=== PATIENT | female | born 1990 | race African-American/Black ===

== ENCOUNTER 2017-03-06 18:42 | Emergency (ER) | payer MEDICAID ==
[~2017-03-06] VITALS: Ht 162.6 cm; Wt 104.3 kg
[~2017-03-06 18:42] MED LIST: ALBUTEROL SULF8.5 GM INH; ALBUTEROL2.5 MG/3 M HHN; AMOXICILLIN500 MG ORAL; BENTYL10 MG ORAL; CYCLOBENZAPRINE10 MG ORAL; FERROUS GLUCON324 M1 PO; HYDROCODON-ACE1 EA15 ORAL; IBUPROFEN600 MG ORAL; IBUPROFEN600 MG PO; KEFLEX500 MG ORAL; LOMOTIL TABLET1 EACH ORAL; NITROFURANTOIN100 M2 ORAL; NKM; NORCO 10-325 T1 EACH PO; NORCO 5-325 TA1 EACH ORAL; NORCO 5-325 TA1 EACH PO; ONDANSETRON ODT4 MG ORAL; PHENAZOPYRIDIN200 MG ORAL; ROBAXIN-750750 MG PO; TYLENOL325 MG ORAL; VALIUM5 MG PO; VICODIN 5-5001 EACH PO; ZANTAC150 MG ORAL; ZOFRAN ODT4 MG ORAL; ZOFRAN4 MG ORAL
--- NOTE | 2017-03-06 19:39 | Emergency Room Report ---
History of Present Illness General Chief Complaint: Sore Throat Present Illness HPI 26-year-old female presents emergency department complaining of 10 out of 10 in severity sore throat with changes in voice x2 days. Patient reports pain is exacerbated upon swallowing and she describes a tearing sensation. Patient also reports tonsillar swelling. Patient denies fevers or chills, denies cough denies taking medications prior to arrival for pain. Patient denies runny nose , nasal congestion, rashes, or abdominal pain. Denies CP, Palpitations, LOC, AMS , dizziness, Changes in Vision, Sensation, paresthesias, or a sudden severe headache. Allergies: Coded Allergies: KETOROLAC (Verified Allergy, Unknown, Rash, 04/19/15) Face swelling TRAMADOL (Unverified Allergy, Unknown, Hives, 04/19/15) Patient History Past Medical History: see triage record Past Surgical History: none Pertinent Family History: none Last Menstrual Period: march Now: No Immunizations: UTD Reviewed Nursing Documentation: PMH: Agreed, PSxH: Agreed Nursing Documentation-PMH Hx Cardiac Problems: No Hx Hypertension: No Hx Pacemaker: No Hx Asthma: Yes Hx COPD: No Hx Diabetes: No Hx Cancer: No Hx Gastrointestinal Problems: No Hx Dialysis: No Hx Neurological Problems: No Hx Cerebrovascular Accident: No Hx Seizures: No Review of Systems All Other Systems: negative except mentioned in HPI Physical Exam Vital Signs Date Time Temp Pulse Resp B/P Pulse Ox O2 Delivery O2 Flow Rate FiO2 03/06/17 19:10 99.9 94 16 109/66 98 Room Air Sp02 EP Interpretation: reviewed, normal General Appearance: no apparent distress, alert, GCS 15, non-toxic, mild distress Head: normocephalic, atraumatic Eyes: bilateral eye PERRL, bilateral eye normal inspection ENT: hearing grossly normal, normal pharynx, no angioedema, normal voice, TMs + canals normal, uvula midline, tonsillar swelling - unilateral left-sided tonsillar swelling. , pharyngeal erythema, other - no swelling of the soft palate, uvula is midline. Neck: full range of motion, supple/symm/no masses Respiratory: chest non-tender, lungs clear, normal breath sounds, speaking full sentences Cardiovascular #1: regular rate, rhythm, no edema Musculoskeletal: back normal, gait/station normal, normal range of motion, non- tender Neurologic: alert, oriented x3, responsive, motor strength/tone normal, sensory intact, speech normal Psychiatric: judgement/insight normal, memory normal, mood/affect normal Skin: normal color, no rash, warm/dry, well hydrated Lymphatic: no adenopathy Medical Decision Making PA Attestation Dr. Gonzalez is my supervising Physician whom patient management has been discussed with. Diagnostic Impression: Primary Impression: Acute tonsillitis Qualified Codes: J03.00 - Acute streptococcal tonsillitis, unspecified ER Course 26-year-old female presents emergency department complaining of 10 out of 10 in severity sore throat with changes in voice x2 days. Patient reports pain is exacerbated upon swallowing and she describes a tearing sensation. Patient also reports tonsillar swelling. Patient denies fevers or chills, denies cough denies taking medications prior to arrival for pain. Patient denies runny nose , nasal congestion, rashes, or abdominal pain. Ddx considered but are not limited to: pharyngitis, strep, LINSEED OIL TEMPERER, ludwigs angina, URI Vital signs: are WNL, pt. is afebrile H&PE are most consistent with: pharyngitis presumed strep. ORDERS: None required at this time as the diagnosis is clinical ED INTERVENTIONS: -IM Decadron -IM PCN-G -Lidocaine 2% viscous 10ml --D/W pt strict follow up precautions, in 48 hours, pt. to return to ED with worsening or new symptoms such as fevers. As this could indicate progression of infection, specifically abscess. DISCHARGE: At this time pt. is stable for d/c to home. Will provide printed patient care instructions, and any necessary prescriptions. Care plan and follow up instructions have been discussed with the patient prior to discharge. Last Vital Signs Date Time Temp Pulse Resp B/P Pulse Ox O2 Delivery O2 Flow Rate FiO2 03/06/17 19:10 99.9 94 16 109/66 98 Room Air Disposition: HOME, SELF-CARE Condition: Stable Scripts Lidocaine HCl (Lidocaine HCl Viscous) 100 Ml Solution 20 ML PO QID, #200 ML Prov: Rosalinda Mendieta P.A. 03/06/17 Acetaminophen* (TYLENOL EXTRA STRENGTH*) 500 Mg Tablet 500 MG ORAL Q6H Y for Mild Pain/Temp > 100.5, #20 TAB 0 Refills Prov: Rosalinda Mednieta P.A. 03/06/17 Ibuprofen* (MOTRIN*) 600 Mg Tablet 600 MG ORAL THREE TIMES A DAY, #30 TAB 0 Refills Prov: Rosalinda Mendieta 03/06/17 Patient Instructions: Tonsillitis Additional Instructions: Take medications as directed. Follow up with PCP in 48 hours Return sooner to ED if new symptoms occur, or current symptoms become worse. RETURN to ED with Development of fevers, or worsening of symptoms. - Please note that this Emergency Department Report was dictated using MEDOVENTstretcher operator technology software, occasionally this can lead to erroneous entry secondary to interpretation by the dictation equipment. Rosalinda Mendieta March 06, 2017 19:39
[2017-03-06] MEDS ORDERED: Bicillin LA 1.2 Million Units Syr IM ONE (19:45)
[2017-03-06] MEDS ORDERED: Lidocaine 2% Visc 15ml soln ORAL ONE (19:45)
[2017-03-06] MEDS ORDERED: Dexamethasone 4mg/ml vial IM ONE (19:45)
[2017-03-06] MEDS ORDERED: TYLENOL EXTRA500 MG ORAL (20:33)
[2017-03-06] MEDS ORDERED: IBUPROFEN600 MG ORAL (20:33)
[2017-03-06] MEDS ORDERED: LIDOCAINE VISCO20 ML PO (20:38)
[2017-03-06 20:51] VITALS: BP 106/68
== END 2017-03-06 20:51 | disposition home or self-care (01) ==
LOC: EMR 20:14
DX: J03.00 Acute streptococcal tonsillitis, unspecified (principal); J45.909 Unspecified asthma, uncomplicated; Z88.6 Allergy status to analgesic agent
CPT/HCPCS: 96372; 99284; J0561; J1100

== ENCOUNTER 2017-04-30 15:36 | Emergency (ER) | payer MEDICAID ==
[~2017-04-30] VITALS: Ht 162.6 cm; Wt 104.3 kg
[~2017-04-30 15:36] MED LIST changes: +LIDOCAINE VISCO20 ML PO; +TYLENOL EXTRA500 MG ORAL
[2017-04-30 15:56] VITALS: BP 121/77
[2017-04-30] MEDS ORDERED: Norco 5mg/325mg tab ORAL ONE (16:00)
[2017-04-30 16:24] LABS: APPEARANCE,URINE CLEAR; KETONES,URINE NEGATIVE (NEGATIVE); LEUKOCYTE ESTERASE ,URINE 2+ (NEGATIVE); NITRITE,URINE NEGATIVE (NEGATIVE); PH,URINE 5 (4.5-8.0); PROTEIN,URINE NEGATIVE (NEGATIVE); UROBILINOGEN,URINE 1 MG/DL (0.0-1.0)
[2017-04-30 16:28] LABS: BASOPHILS % (AUTO) 0.8 % (0.0-2.0); EOSINOPHILS % (AUTO) 1.7 % (0.0-3.0); LYMPHOCYTES % (AUTO) 29.1 % (20.0-45.0); MEAN CORPUSCULAR HEMOGLOBIN 25.2 PG (27.0-31.0); MEAN CORPUSCULAR HGB CONC 31.7 G/DL (32.0-36.0); MEAN CORPUSCULAR VOLUME 80 FL (80-99); MEAN PLATELET VOLUME 6.4 FL (6.5-10.1); MONOCYTES % (AUTO) 8.3 % (1.0-10.0); PLATELET COUNT 308 K/UL (150-450); RED BLOOD COUNT 3.77 M/UL (4.20-5.40); RED CELL DISTRIBUTION WIDTH 15.9 % (11.6-14.8); WHITE BLOOD COUNT 7.2 K/UL (4.8-10.8)
[2017-04-30 16:33] LABS: BACTERIA,URINE MODERATE /HPF; SQUAMOUS EPITHELIAL CELL,UR MODERATE /LPF (NONE/OCC)
[2017-04-30 16:36] LABS: ALANINE AMINOTRANSFERASE 7 U/L (3-33); ALBUMIN/GLOBULIN RATIO 1.1 (1.0-2.7); ANION GAP 11 (5-15); ASPARTATE AMINO TRANSFERASE 12 U/L (5-40); CALCIUM 9.5 mg/dL (8.6-10.2); CARBON DIOXIDE 25 mEQ/L (20-30); CHLORIDE 104 mEQ/L (98-107); CREATININE 0.8 mg/dL (0.5-0.9); GLOMERULAR FILTRATION RATE > 60 mL/min (>60); HEMOLYSIS 1; LIPASE 28 U/L (< 60); POTASSIUM 3.8 mEQ/L (3.4-4.9); SODIUM 140 mEQ/L (135-145)
[2017-04-30] MEDS ORDERED: cefTRIAXone 1 GM in NS 55 ML IVPB ONE (17:15)
[2017-04-30] MEDS ORDERED: NORCO 5-325 TA1 EAC1 ORAL (17:51)
[2017-04-30] MEDS ORDERED: KEFLEX500 MG ORAL (17:51)
[2017-04-30 18:14] VITALS: BP 117/74
[2017-04-30 18:15] VITALS: BP 121/77
--- NOTE | 2017-04-30 22:19 | Emergency Room Report ---
History of Present Illness General Chief Complaint: Abdominal Pain Source: Patient Present Illness HPI This is a 26 year-old female who presented after increased abdominal pain. The patient gradual onset of symptoms over the past few hours. Patient reported having pain predominantly in the right side of her abdomen. She not been vomiting. She reported having some urinary symptoms. She denied any fever. She denied worsening pain with ambulation and cough. She reports having a last menstrual period approximately 2 days prior to arrival. She denies any fever Allergies: Coded Allergies: KETOROLAC (Verified Allergy, Unknown, Rash, 04/19/15) Face swelling TRAMADOL (Unverified Allergy, Unknown, Hives, 04/19/15) Patient History Past Medical History: see triage record Now: No Reviewed Nursing Documentation: PMH: Agreed, PSxH: Agreed Nursing Documentation-PMH Hx Cardiac Problems: No Hx Hypertension: No Hx Pacemaker: No Hx Asthma: Yes Hx COPD: No Hx Diabetes: No Hx Cancer: No Hx Gastrointestinal Problems: No Hx Dialysis: No Hx Neurological Problems: No Hx Cerebrovascular Accident: No Hx Seizures: No Review of Systems All Other Systems: negative except mentioned in HPI Physical Exam Vital Signs Date Time Temp Pulse Resp B/P Pulse Ox O2 Delivery O2 Flow Rate FiO2 04/30/17 15:39 98.2 81 20 118/80 100 Room Air Sp02 EP Interpretation: reviewed, normal General Appearance: normal inspection, well appearing, no apparent distress, alert, GCS 15, non-toxic, obese Head: atraumatic ENT: normal ENT inspection, hearing grossly normal, normal voice Neck: normal inspection, full range of motion, supple, no bony tend Respiratory: normal inspection, lungs clear, normal breath sounds, no respiratory distress, no retraction, no wheezing Cardiovascular #1: regular rate, rhythm, no edema Gastrointestinal: normal inspection, normal bowel sounds, non tender, soft, no guarding, no hernia, other - diastasis rectus, overweight Genitourinary: no CVA tenderness Musculoskeletal: normal inspection, back normal, normal range of motion Neurologic: normal inspection, alert, responsive, speech normal Psychiatric: normal inspection, judgement/insight normal, mood/affect normal Skin: normal inspection, normal color, no rash Medical Decision Making Diagnostic Impression: Primary Impression: UTI (urinary tract infection) Additional Impressions: Morbid obesity Nausea ER Course Patient presented for abdominal pain. Differential diagnoses included ischemic bowel, appendicitis, perforated viscus, abdominal aortic aneurysm, inferior myocardial infarction, viral gastroenteritis Because of complexity of patient's case laboratory testing and imaging studies were ordered. The pelvic ultrasound showed small ovarian cyst without evident torsion. The patient given IV antibiotics as well as prescription for antibiotics.The patient is advised to follow up with primary care doctor in 1-2 days. Patient is advised to return if any worsening condition or if any changes in status that are concerning. Last Vital Signs Date Time Temp Pulse Resp B/P Pulse Ox O2 Delivery O2 Flow Rate FiO2 04/30/17 18:15 98.0 86 19 121/77 99 Room Air Status: improved Disposition: HOME, SELF-CARE Condition: Improved Scripts Hydrocodone Bit/Acetaminophen 5-325* (NORCO 5-325 TABLET*) 1 Each Tablet 1 TAB ORAL Q4H Y for For Pain, #10 TAB Prov: Roman Gonzalez 04/30/17 Cephalexin* (KEFLEX*) 500 Mg Capsule 500 MG ORAL Q6H, #28 CAP 0 Refills Prov: Roman Gonzalez 04/30/17 Referrals: [facility] (PCP) Patient Instructions: Abdominal Pain, Adult Roman Gonzalez Apr 30, 2017 22:19
--- NOTE | 2017-05-01 10:49 | Diagnostic Imaging Report ---
Indication:Lower abdominal and pelvic pain Technique: Grayscale and duplex Doppler imaging of the pelvis performed utilizing a transabdominal scan and endovaginal scan. Comparison: None Findings: There is a dominant right ovarian cyst measuring approximate 1.8 CM. This probably a follicular cyst. Suggest repeat at 6 weeks. Endometrium appears normal. Uterus is 10.7 x 6.3 x 5.2 CM. There is good Doppler evidence of blood flow within both ovaries. There is no free fluid. Endometrium shows increased echogenicity. The endometrial thickness is normal. Impression: Dominant right ovarian cyst 1.8 CM. Suggest repeat at 6 weeks.
== END 2017-04-30 18:17 | disposition home or self-care (01) ==
LOC: EMR 16:08
DX: N39.0 Urinary tract infection, site not specified (principal); E66.01 Morbid (severe) obesity due to excess calories; Z68.39 Body mass index [BMI] 39.0-39.9, adult; R11.0 Nausea; J45.909 Unspecified asthma, uncomplicated
CPT/HCPCS: 36415; 76830; 76856; 80053; 80300; 81003; 81025; 83690; 85025; 87086; 96365; 96375; 99284; J0696; J2405; J7040; 96360; 96361; 96374

== ENCOUNTER 2017-06-08 15:50 | Emergency (ER) | payer MEDICAID ==
[~2017-06-08] VITALS: Ht 162.6 cm; Wt 108.9 kg
[~2017-06-08 15:50] MED LIST changes: +NORCO 5-325 TA1 EAC1 ORAL
[2017-06-08 16:28] VITALS: BP 111/76
[2017-06-08] MEDS ORDERED: Dexamethasone 4mg/ml vial IM ONE (16:45)
[2017-06-08] MEDS ORDERED: AMOXICILLIN500 MG ORAL (16:54)
--- NOTE | 2017-06-08 16:56 | Emergency Room Report ---
History of Present Illness General Chief Complaint: Sore Throat Source: Patient Present Illness HPI 26 yo F hx of asthma p/w sore throat x 1 day +subjective fever and chills sore throat worse with swallowing, however has been able to tolerate liquids/ solids. no changes in voice. states she has had hx of tonsillitis in the past requiring abx, no hx of EMT I/99. No current cough, no neck pain also states b/l ankle swelling x 3 weeks, her PMD is aware. no hx of OCPs, no calf pain, no difficulty walking, no SOB. Allergies: Coded Allergies: KETOROLAC (Verified Allergy, Unknown, Rash, 04/19/15) Face swelling TRAMADOL (Unverified Allergy, Unknown, Hives, 04/19/15) Patient History Past Medical History: asthma Past Surgical History: none Pertinent Family History: none Last Menstrual Period: 05/07/17 Now: No Nursing Documentation-PMH Hx Cardiac Problems: No Hx Hypertension: No Hx Pacemaker: No Hx Asthma: Yes Hx COPD: No Hx Diabetes: No Hx Cancer: No Hx Gastrointestinal Problems: No Hx Dialysis: No Hx Neurological Problems: No Hx Cerebrovascular Accident: No Hx Seizures: No Review of Systems All Other Systems: negative except mentioned in HPI Physical Exam Vital Signs Date Time Temp Pulse Resp B/P Pulse Ox O2 Delivery O2 Flow Rate FiO2 06/08/17 15:53 102.7 105 20 111/76 99 Room Air Sp02 EP Interpretation: normal General Appearance: normal inspection, well appearing, no apparent distress, alert, GCS 15, non-toxic Head: normocephalic, atraumatic Eyes: bilateral eye EOMI, bilateral eye PERRL, bilateral eye normal inspection ENT: normal voice, moist mucus membranes, tonsillar swelling, other - b/l tonsillar enlargement, erythema, +exudates on L tonsil, no signs of peritonsillar abscess Neck: normal inspection, full range of motion, supple, no bony tend Respiratory: normal inspection, lungs clear, normal breath sounds, no respiratory distress, no retraction, no wheezing, speaking full sentences, chest symmetrical Cardiovascular #1: normal inspection, regular rate, rhythm, normal capillary refill Gastrointestinal: normal inspection, non tender, soft, non-distended, no guarding Musculoskeletal: normal inspection, back normal, normal range of motion, swelling, other - b/l ankle non pitting edema, no gross bony deformities, FROM, no calf tendernes, able to bear weight on both feet, gait normal Neurologic: normal inspection, alert, oriented x3, responsive, urologist md III-XII nml as tested, motor strength/tone normal, sensory intact, normal gait, speech normal Medical Decision Making Diagnostic Impression: Primary Impression: Acute tonsillitis Additional Impression: Swollen ankles ER Course 26 yo F hx of asthma p/w 1 day sore throat, 3 wks swollen ankles 1 day sore throat ddx: pharyngitis / tonsillitis / EMT I/99 / RPA likely tonsillitis given hx/exam, at this time no precinct captain visualized, no neck tenderness/pain decadron, amoxicillin, ENT follow up as pt has had multiple episodes of tonsillitis patient is instructed to return to ED if sx worsen, inability to swallow, SOB, change in voice that may indicate deeper infection swollen ankles ?venous insufficiency. at this time not c/w dvt as b/l, no risk factors not on any ocps. no calf tenderness. instructed to fu with pmd. recommended compression stockings, avoiding long periods of standing, keeping legs elevated Last Vital Signs Date Time Temp Pulse Resp B/P Pulse Ox O2 Delivery O2 Flow Rate FiO2 06/08/17 16:28 101.7 87 20 111/76 99 Room Air Disposition: HOME, SELF-CARE Condition: Stable Scripts Amoxicillin* (AMOXIL*) 500 Mg Capsule 500 MG ORAL BID for 7 Days, #14 CAP Prov: Sara Escoto M.D. 06/08/17 Referrals: [facility] (PCP) Patient Instructions: Sore Throat, Tonsillitis Additional Instructions: PLEASE FOLLOW UP WITH AN EAR/NOSE/THROAT DOCTOR WITHIN 1 WEEK PLEASE FOLLOW UP WITH YOUR PRIMARY CARE DOCTOR WITHIN 1 WEEK Sara Escoto M.D. Jun 08, 2017 16:56
[2017-06-08 17:19] VITALS: BP 111/76
== END 2017-06-08 17:20 | disposition home or self-care (01) ==
LOC: EMR 16:16
DX: J03.90 Acute tonsillitis, unspecified (principal); R60.0 Localized edema; J45.909 Unspecified asthma, uncomplicated; Z88.6 Allergy status to analgesic agent; Z88.8 Allergy status to other drugs, medicaments and biological substances
CPT/HCPCS: 96372; 99283; J1100

== ENCOUNTER 2017-08-18 15:29 | Emergency (ER) | payer MEDICAID ==
[~2017-08-18] VITALS: Ht 154.9 cm; Wt 106.1 kg
[2017-08-18 15:42] VITALS: BP 117/78
[2017-08-18] MEDS ORDERED: Mylanta II UD 30ml ORAL ONE (16:45)
[2017-08-18] MEDS ORDERED: Lidocaine 2% Visc 15ml soln ORAL ONE (16:45)
[2017-08-18] MEDS ORDERED: Dicyclomine HCl 10mg/5ml oral soln ORAL ONE (16:45)
--- NOTE | 2017-08-18 16:47 | Emergency Room Report ---
History of Present Illness General Chief Complaint: General Complaint Present Illness HPI 26 YO female presents to the ED c/o N/V with burning mid epigastric pain x 2 days, dizziness. no recent travel or ill contacts. RUQ TTP. denies drug use. denies . denies constipation or diarrhea. denies blood in the vomit. reports hx of abdominal pain and vomiting in the past. denies fevers or chills. denies rashes. denies dysuria, frequency, urgency or hematuria. Denies CP, Palpitations, LOC, AMS, dizziness, Changes in Vision, Sensation, paresthesias, or a sudden severe headache. Allergies: Coded Allergies: KETOROLAC (Verified Allergy, Unknown, Rash, 04/19/15) Face swelling TRAMADOL (Unverified Allergy, Unknown, Hives, 04/19/15) Patient History Past Medical History: see triage record Past Surgical History: none Pertinent Family History: none Now: No Immunizations: UTD Reviewed Nursing Documentation: PMH: Agreed, PSxH: Agreed Nursing Documentation-PMH Hx Cardiac Problems: No Hx Hypertension: No Hx Pacemaker: No Hx Asthma: Yes Hx COPD: No Hx Diabetes: No Hx Cancer: No Hx Gastrointestinal Problems: No Hx Dialysis: No Hx Neurological Problems: No Hx Cerebrovascular Accident: No Hx Seizures: No Review of Systems All Other Systems: negative except mentioned in HPI Physical Exam Vital Signs Date Time Temp Pulse Resp B/P (MAP) Pulse Ox O2 Delivery O2 Flow Rate FiO2 08/18/17 15:32 98.2 90 20 117/78 98 Room Air Sp02 EP Interpretation: reviewed, normal General Appearance: no apparent distress, alert, GCS 15, non-toxic, mild distress Head: normocephalic, atraumatic Eyes: bilateral eye normal inspection, bilateral eye PERRL ENT: hearing grossly normal, normal voice, moist mucus membranes Neck: full range of motion Respiratory: lungs clear, normal breath sounds, speaking full sentences Cardiovascular #1: regular rate, rhythm Gastrointestinal: normal bowel sounds, soft, no guarding, no rebound, other - mild TTP to deep palpation to mid-epigastric and RUQ, Negative MacBurney's sign , Negative Rosvigns Sign, Negative Psoas, No Peritoneal signs. Rectal: deferred Genitourinary: normal inspection, no CVA tenderness Musculoskeletal: back normal, gait/station normal, normal range of motion, non- tender Neurologic: alert, oriented x3, responsive, motor strength/tone normal, sensory intact, normal gait, speech normal Skin: normal color, no rash, warm/dry, well hydrated Medical Decision Making PA Attestation Dr. Dimas is my supervising Physician whom patient management has been discussed with. Diagnostic Impression: Primary Impression: UTI (urinary tract infection) Qualified Codes: N30.01 - Acute cystitis with hematuria Additional Impression: Intractable vomiting with nausea Qualified Codes: G43.A1 - Cyclical vomiting, intractable ER Course 26 YO female presents to the ED c/o N/V with burning mid epigastric pain x 2 days, dizziness. no recent travel or ill contacts. RUQ TTP. denies drug use. denies . denies constipation or diarrhea. denies blood in the vomit. reports hx of abdominal pain and vomiting in the past. denies fevers or chills. denies rashes. denies dysuria, frequency, urgency or hematuria. Denies CP, Palpitations, LOC, AMS, dizziness, Changes in Vision, Sensation, paresthesias, or a sudden severe headache. Ddx considered but are not limited to GE, colitis, acute appy, SBO, * Vital signs: pt. is afebrile, H&PE are most consistent with intractable vomiting ORDERS: -UA: positive for UTI -Urine HCg: Negative -UDS: positive for THC -CBC: unremarkable- no evidence of acute bleed. -CMP: unremarkable/ electrolytes ok -Lipase: WNL -Abdominal US: no gall stones, no tsang's sign per preliminary US report. ED INTERVENTIONS: - 4mg PO zofran for nausea. -GI Cocktail -zofran IM -Reglan IM -Ativan IV -NS Bolus -Rocephin IV -Pt. declines capsaicin cream -Fluid Challenge.---pt. unable to tolerate fluid challenges or oral medications. DISPOSITION: at this time pt. will be admitted to Dr. Maria for Intractable Vomiting. Dr. Maria agreed to admit the pt. and to continue pt. care management. Labs Test 08/18/17 12:40 08/18/17 16:30 White Blood Count 8.5 K/UL (4.8-10.8) Red Blood Count 4.63 M/UL (4.20-5.40) Hemoglobin 10.7 G/DL (12.0-16.0) Hematocrit 35.7 % (37.0-47.0) Mean Corpuscular Volume 77 FL (80-99) Mean Corpuscular Hemoglobin 23.1 PG (27.0-31.0) Mean Corpuscular Hemoglobin Concent 29.9 G/DL (32.0-36.0) Red Cell Distribution Width 15.4 % (11.6-14.8) Platelet Count 407 K/UL (150-450) Mean Platelet Volume 5.9 FL (6.5-10.1) Neutrophils (%) (Auto) 63.1 % (45.0-75.0) Lymphocytes (%) (Auto) 28.9 % (20.0-45.0) Monocytes (%) (Auto) 6.3 % (1.0-10.0) Eosinophils (%) (Auto) 1.2 % (0.0-3.0) Basophils (%) (Auto) 0.5 % (0.0-2.0) Sodium Level 142 MMOL/L (136-145) Potassium Level 3.9 MMOL/L (3.5-5.1) Chloride Level 106 MMOL/L (98-107) Carbon Dioxide Level 30 MMOL/L (21-32) Anion Gap 6 mmol/L (5-15) Blood Urea Nitrogen 11 mg/dL (7-18) Creatinine 0.8 MG/DL (0.55-1.30) Estimat Glomerular Filtration Rate > 60 mL/min (>60) Glucose Level 96 MG/DL (74-106) Calcium Level 9.9 MG/DL (8.5-10.1) Total Bilirubin 0.4 MG/DL (0.2-1.0) Aspartate Amino Transf (AST/SGOT) 15 U/L (15-37) Alanine Aminotransferase (ALT/SGPT) 14 U/L (12-78) Alkaline Phosphatase 108 U/L (46-116) Total Protein 8.2 G/DL (6.4-8.2) Albumin 3.3 G/DL (3.4-5.0) Globulin 4.9 g/dL Albumin/Globulin Ratio 0.7 (1.0-2.7) Lipase 120 U/L (73-393) Urine Color Brown Urine Appearance Slightly cloudy Urine pH 6 (4.5-8.0) Urine Specific [place] 1.020 (1.005-1.035) Urine Protein 1+ (NEGATIVE) Urine Glucose (UA) Negative (NEGATIVE) Urine Ketones 1+ (NEGATIVE) Urine Occult Blood 1+ (NEGATIVE) Urine Nitrite Negative (NEGATIVE) Urine Bilirubin Negative (NEGATIVE) Urine Urobilinogen 4 MG/DL (0.0-1.0) Urine Leukocyte Esterase 1+ (NEGATIVE) Urine RBC 2-4 /HPF (0 - 2) Urine WBC 5-10 /HPF (0 - 2) Urine Squamous Epithelial Cells Moderate /LPF (NONE/OCC) Urine Amorphous Sediment Few /LPF (NONE) Urine Bacteria Many /HPF (NONE) Urine HCG, Qualitative Negative Urine Opiates Screen Negative (NEGATIVE) Urine Barbiturates Screen Negative (NEGATIVE) Phencyclidine (PCP) Screen Negative (NEGATIVE) Urine Amphetamines Screen Negative (NEGATIVE) Urine Benzodiazepines Screen Negative (NEGATIVE) Urine Cocaine Screen Negative (NEGATIVE) Urine Marijuana (THC) Screen Positive (NEGATIVE) Last Vital Signs Date Time Temp Pulse Resp B/P (MAP) Pulse Ox O2 Delivery O2 Flow Rate FiO2 08/18/17 15:32 98.2 90 20 117/78 98 Room Air Disposition: ADMITTED INPATIENT Condition: Rosalinda Smith Aug 18, 2017 16:47
[2017-08-18 17:32] LABS: APPEARANCE,URINE SLIGHTLY CLOUDY; KETONES,URINE 1+ (NEGATIVE); LEUKOCYTE ESTERASE ,URINE 1+ (NEGATIVE); NITRITE,URINE NEGATIVE (NEGATIVE); PH,URINE 6 (4.5-8.0); PROTEIN,URINE 1+ (NEGATIVE); UROBILINOGEN,URINE 4 MG/DL (0.0-1.0)
[2017-08-18 17:39] LABS: AMORPHOUS SEDIMENT,UR FEW /LPF; BACTERIA,URINE MANY /HPF; SQUAMOUS EPITHELIAL CELL,UR MODERATE /LPF (NONE/OCC)
[2017-08-18] MEDS ORDERED: Metoclopramide 10mg/2ml Inj IM ONE (18:30)
[2017-08-18] MEDS ORDERED: LORazepam Inj 2mg/ml 1ml IV ONE (19:00)
[2017-08-18 19:45] LABS: BASOPHILS % (AUTO) 0.5 % (0.0-2.0); EOSINOPHILS % (AUTO) 1.2 % (0.0-3.0); LYMPHOCYTES % (AUTO) 28.9 % (20.0-45.0); MEAN CORPUSCULAR HEMOGLOBIN 23.1 PG (27.0-31.0); MEAN CORPUSCULAR HGB CONC 29.9 G/DL (32.0-36.0); MEAN CORPUSCULAR VOLUME 77 FL (80-99); MEAN PLATELET VOLUME 5.9 FL (6.5-10.1); MONOCYTES % (AUTO) 6.3 % (1.0-10.0); NEUTROPHILS % (AUTO) 63.1 % (45.0-75.0); PLATELET COUNT 407 K/UL (150-450); RED BLOOD COUNT 4.63 M/UL (4.20-5.40); RED CELL DISTRIBUTION WIDTH 15.4 % (11.6-14.8); WHITE BLOOD COUNT 8.5 K/UL (4.8-10.8)
[2017-08-18 19:49] LABS: ALANINE AMINOTRANSFERASE 14 U/L (12-78); ALBUMIN/GLOBULIN RATIO 0.7 (1.0-2.7); ANION GAP 6 mmol/L (5-15); ASPARTATE AMINO TRANSFERASE 15 U/L (15-37); CALCIUM 9.9 MG/DL (8.5-10.1); CARBON DIOXIDE 30 MMOL/L (21-32); CHLORIDE 106 MMOL/L (98-107); CREATININE 0.8 MG/DL (0.55-1.30); GLOMERULAR FILTRATION RATE > 60 mL/min (>60); LIPASE 120 U/L (73-393); POTASSIUM 3.9 MMOL/L (3.5-5.1); SODIUM 142 MMOL/L (136-145); TOTAL PROTEIN 8.2 G/DL (6.4-8.2)
[2017-08-18] MEDS ORDERED: cefTRIAXone 1 GM in NS 55 ML IVPB ONE (20:15)
[2017-08-18 20:46] VITALS: BP 128/89
[2017-08-18 23:00] VITALS: BP 128/89
--- NOTE | 2017-08-19 10:13 | Diagnostic Imaging Report ---
Indication:Abdominal pain Technique: Grayscale and duplex Doppler imaging of the abdomen performed. Comparison: None Findings: The liver, demonstrated part of the pancreas, gallbladder, aorta and IVC, both kidneys, spleen appear unremarkable. There is no biliary ductal dilatation identified. CBD is 4 mm. Doppler evaluation of the main portal vein shows patency. There is no ascites. No hydronephrosis seen. Impression: No acute findings
== END 2017-08-18 23:38 | disposition short-term general hospital (02) ==
LOC: EMR 17:45
DX: N39.0 Urinary tract infection, site not specified (principal); R11.2 Nausea with vomiting, unspecified; R10.13 Epigastric pain; Z88.5 Allergy status to narcotic agent; Z88.8 Allergy status to other drugs, medicaments and biological substances; J45.909 Unspecified asthma, uncomplicated
CPT/HCPCS: 36415; 76700; 80053; 80306; 81003; 81025; 83690; 85025; 87086; 96361; 96372; 96374; 96375; 99284; J0696; J2405; J2765

== ENCOUNTER 2017-11-29 19:25 | Emergency (ER) | payer MEDICAID ==
[~2017-11-29] VITALS: Ht 162.6 cm; Wt 108.9 kg
[2017-11-29] MEDS ORDERED: Sodium Chloride 500ML 500 ML IV ONE (20:54)
[2017-11-29 21:59] LABS: EOSINOPHILS % (AUTO) 1.5 % (0.0-3.0); HEMATOCRIT 35.7 % (37.0-47.0); HEMOGLOBIN 10.8 G/DL (12.0-16.0); LYMPHOCYTES % (AUTO) 29.3 % (20.0-45.0); MEAN CORPUSCULAR VOLUME 79 FL (80-99); MONOCYTES % (AUTO) 6.8 % (1.0-10.0); NEUTROPHILS % (AUTO) 61.4 % (45.0-75.0); PLATELET COUNT 332 K/UL (150-450); RED BLOOD COUNT 4.54 M/UL (4.20-5.40); WHITE BLOOD COUNT 8.3 K/UL (4.8-10.8)
[2017-11-29 22:05] LABS: APPEARANCE,URINE CLOUDY; BILIRUBIN, URINE 1+ (NEGATIVE); GLUCOSE, URINE (UA) NEGATIVE (NEGATIVE); KETONES,URINE 2+ (NEGATIVE); LEUKOCYTE ESTERASE ,URINE 1+ (NEGATIVE); NITRITE,URINE NEGATIVE (NEGATIVE); PH,URINE 5 (4.5-8.0); PROTEIN,URINE 2+ (NEGATIVE); UROBILINOGEN,URINE 1 MG/DL (0.0-1.0)
[2017-11-29 22:06] LABS: COLOR,URINE YELLOW
[2017-11-29 22:09] LABS: ANION GAP 10 mmol/L (5-15); BLOOD UREA NITROGEN 9 mg/dL (7-18); CALCIUM 9.7 MG/DL (8.5-10.1); CARBON DIOXIDE 27 MMOL/L (21-32); CHLORIDE 105 MMOL/L (98-107); CREATININE 0.8 MG/DL (0.55-1.30); POTASSIUM 3.3 MMOL/L (3.5-5.1); SODIUM 142 MMOL/L (136-145)
[2017-11-29 22:13] LABS: ALANINE AMINOTRANSFERASE 10 U/L (12-78); ALBUMIN 3.3 G/DL (3.4-5.0); ALBUMIN/GLOBULIN RATIO 0.8 (1.0-2.7); ALKALINE PHOSPHATASE 77 U/L (46-116); ASPARTATE AMINO TRANSFERASE 13 U/L (15-37); BILIRUBIN,TOTAL 0.6 MG/DL (0.2-1.0)
[2017-11-29] MEDS ORDERED: ZOFRAN4 MG ORAL (22:28)
[2017-11-29] MEDS ORDERED: KEFLEX500 MG ORAL (22:28)
[2017-11-29 22:35] VITALS: BP 118/81
[2017-11-29 22:45] VITALS: BP 118/81
--- NOTE | 2017-12-03 05:23 | Emergency Room Report ---
History of Present Illness General Chief Complaint: Vomiting Present Illness HPI Patient is a 27-year-old female presented after increased vomiting and abdominal discomfort. Patient gradual onset of symptoms. Patient had a previous visits for similar type pain. She reported having epigastric abdominal cramping. She denies any fever.She denies any recent marijuana use. She denied any hematemesis. Allergies: Coded Allergies: KETOROLAC (Verified Allergy, Unknown, Rash, 04/19/15) Face swelling TRAMADOL (Unverified Allergy, Unknown, Hives, 04/19/15) Patient History Past Medical History: see triage record Last Menstrual Period: Nov Reviewed Nursing Documentation: PMH: Agreed, PSxH: Agreed Nursing Documentation-PMH Hx Cardiac Problems: No Hx Hypertension: No Hx Pacemaker: No Hx Asthma: Yes Hx COPD: No Hx Diabetes: No Hx Cancer: No Hx Gastrointestinal Problems: No Hx Dialysis: No Hx Neurological Problems: No Hx Cerebrovascular Accident: No Hx Seizures: No Review of Systems All Other Systems: negative except mentioned in HPI Physical Exam Vital Signs Date Time Temp Pulse Resp B/P (MAP) Pulse Ox O2 Delivery O2 Flow Rate FiO2 11/29/17 20:10 98.6 87 16 118/81 99 Room Air Sp02 EP Interpretation: reviewed, normal General Appearance: normal inspection, well appearing, no apparent distress, alert, GCS 15 Head: atraumatic ENT: normal ENT inspection, hearing grossly normal, normal voice Neck: normal inspection, full range of motion, supple, no bony tend Respiratory: normal inspection, lungs clear, normal breath sounds, no respiratory distress, no retraction, no wheezing Cardiovascular #1: regular rate, rhythm, no edema Gastrointestinal: normal inspection, normal bowel sounds, non tender, soft, no guarding, no hernia Genitourinary: no CVA tenderness Musculoskeletal: normal inspection, back normal, normal range of motion Neurologic: normal inspection, alert, oriented x3, responsive, chief specialist leed III-XII nml as tested, speech normal Psychiatric: normal inspection, judgement/insight normal, mood/affect normal Skin: normal inspection, normal color, no rash Medical Decision Making Diagnostic Impression: Primary Impression: Vomiting Additional Impression: UTI (urinary tract infection) ER Course Patient presented for abdominal pain. Differential diagnoses included ischemic bowel, appendicitis, perforated viscus, abdominal aortic aneurysm, inferior myocardial infarction, viral gastroenteritis Because of complexity of patient's case laboratory testing and imaging studies were ordered.Laboratory studies were unremarkable. Patient was given medications for nausea the patient has not noted to vomit while in the emergency department.. The patient is advised to follow up with primary care doctor in 1-2 days. Patient is advised to return if any worsening condition or if any changes in status that are concerning. This report is dictated with [employer] pressman on web press software which may occasionally lead to discrepancies related to use of this software. Labs Test 11/29/17 21:25 White Blood Count 8.3 K/UL (4.8-10.8) Red Blood Count 4.54 M/UL (4.20-5.40) Hemoglobin 10.8 G/DL (12.0-16.0) Hematocrit 35.7 % (37.0-47.0) Mean Corpuscular Volume 79 FL (80-99) Mean Corpuscular Hemoglobin 23.8 PG (27.0-31.0) Mean Corpuscular Hemoglobin Concent 30.3 G/DL (32.0-36.0) Red Cell Distribution Width 17.0 % (11.6-14.8) Platelet Count 332 K/UL (150-450) Mean Platelet Volume 6.9 FL (6.5-10.1) Neutrophils (%) (Auto) 61.4 % (45.0-75.0) Lymphocytes (%) (Auto) 29.3 % (20.0-45.0) Monocytes (%) (Auto) 6.8 % (1.0-10.0) Eosinophils (%) (Auto) 1.5 % (0.0-3.0) Basophils (%) (Auto) 1.0 % (0.0-2.0) Urine Color Yellow Urine Appearance Cloudy Urine pH 5 (4.5-8.0) Urine Specific [place] 1.025 (1.005-1.035) Urine Protein 2+ (NEGATIVE) Urine Glucose (UA) Negative (NEGATIVE) Urine Ketones 2+ (NEGATIVE) Urine Occult Blood 1+ (NEGATIVE) Urine Nitrite Negative (NEGATIVE) Urine Bilirubin 1+ (NEGATIVE) Urine Ictotest Negative Urine Urobilinogen 1 MG/DL (0.0-1.0) Urine Leukocyte Esterase 1+ (NEGATIVE) Urine RBC 2-4 /HPF (0 - 2) Urine WBC 2-4 /HPF (0 - 2) Urine Squamous Epithelial Cells Many /LPF (NONE/OCC) Urine Bacteria Moderate /HPF (NONE) Urine HCG, Qualitative Negative Sodium Level 142 MMOL/L (136-145) Potassium Level 3.3 MMOL/L (3.5-5.1) Chloride Level 105 MMOL/L (98-107) Carbon Dioxide Level 27 MMOL/L (21-32) Anion Gap 10 mmol/L (5-15) Blood Urea Nitrogen 9 mg/dL (7-18) Creatinine 0.8 MG/DL (0.55-1.30) Estimat Glomerular Filtration Rate > 60 mL/min (>60) Glucose Level 76 MG/DL (74-106) Calcium Level 9.7 MG/DL (8.5-10.1) Total Bilirubin 0.6 MG/DL (0.2-1.0) Aspartate Amino Transf (AST/SGOT) 13 U/L (15-37) Alanine Aminotransferase (ALT/SGPT) 10 U/L (12-78) Alkaline Phosphatase 77 U/L (46-116) Total Protein 7.6 G/DL (6.4-8.2) Albumin 3.3 G/DL (3.4-5.0) Globulin 4.3 g/dL Albumin/Globulin Ratio 0.8 (1.0-2.7) Lipase 101 U/L (73-393) Last Vital Signs Date Time Temp Pulse Resp B/P (MAP) Pulse Ox O2 Delivery O2 Flow Rate FiO2 11/29/17 22:45 98.6 84 16 118/81 99 Room Air Status: improved Disposition: HOME, SELF-CARE Condition: Stable Scripts Cephalexin* (KEFLEX*) 500 Mg Capsule 500 MG ORAL Q6H, #28 CAP 0 Refills Prov: Roman Gonzalez 11/29/17 Ondansetron (Zofran) 4 Mg Tablet 4 MG ORAL Q6H Y for Nausea & Vomiting, #30 TAB 0 Refills Prov: Roman Gonzalez 11/29/17 Referrals: [facility]ERR[facility] (PCP) Patient Instructions: Nausea and Vomiting, Adult Roman Gonzalez Dec 03, 2017 05:23
== END 2017-11-29 22:45 | disposition home or self-care (01) ==
LOC: EMR 20:44
DX: R11.10 Vomiting, unspecified (principal); N39.0 Urinary tract infection, site not specified; J45.909 Unspecified asthma, uncomplicated; Z88.8 Allergy status to other drugs, medicaments and biological substances; Z88.6 Allergy status to analgesic agent
CPT/HCPCS: 36415; 80053; 81003; 81025; 83690; 85025; 87086; 96361; 96374; 99284; J2405

== ENCOUNTER 2018-01-10 19:33 | Emergency (ER) | payer MEDICAID ==
[~2018-01-10] VITALS: Ht 162.6 cm; Wt 104.3 kg
[2018-01-10] MEDS ORDERED: Dicyclomine HCl 10mg/5ml oral soln ORAL ONE (20:30)
[2018-01-10] MEDS ORDERED: Mylanta II UD 30ml ORAL ONE (20:30)
[2018-01-10] MEDS ORDERED: Lidocaine 2% Visc 15ml soln ORAL ONE (20:30)
[2018-01-10 21:19] LABS: BASOPHILS % (AUTO) 0.7 % (0.0-2.0); EOSINOPHILS % (AUTO) 0.3 % (0.0-3.0); HEMATOCRIT 40.5 % (37.0-47.0); HEMOGLOBIN 12.5 G/DL (12.0-16.0); LYMPHOCYTES % (AUTO) 37.9 % (20.0-45.0); MEAN CORPUSCULAR VOLUME 79 FL (80-99); MONOCYTES % (AUTO) 11.4 % (1.0-10.0); NEUTROPHILS % (AUTO) 49.7 % (45.0-75.0); PLATELET COUNT 266 K/UL (150-450); RED BLOOD COUNT 5.15 M/UL (4.20-5.40); RED CELL DISTRIBUTION WIDTH 16.1 % (11.6-14.8); WHITE BLOOD COUNT 3.6 K/UL (4.8-10.8)
[2018-01-10 21:20] LABS: APPEARANCE,URINE SLIGHTLY CLOUDY; BILIRUBIN, URINE NEGATIVE (NEGATIVE); GLUCOSE, URINE (UA) NEGATIVE (NEGATIVE); KETONES,URINE 1+ (NEGATIVE); LEUKOCYTE ESTERASE ,URINE 1+ (NEGATIVE); NITRITE,URINE NEGATIVE (NEGATIVE); PH,URINE 5 (4.5-8.0); PROTEIN,URINE 2+ (NEGATIVE); UROBILINOGEN,URINE NORMAL MG/DL (0.0-1.0)
[2018-01-10 21:22] LABS: COLOR,URINE YELLOW
[2018-01-10 21:35] LABS: ANION GAP 7 mmol/L (5-15); BLOOD UREA NITROGEN 9 mg/dL (7-18); CALCIUM 9.8 MG/DL (8.5-10.1); CARBON DIOXIDE 29 MMOL/L (21-32); CHLORIDE 101 MMOL/L (98-107); CREATININE 0.9 MG/DL (0.55-1.30); POTASSIUM 3.2 MMOL/L (3.5-5.1); SODIUM 137 MMOL/L (136-145)
[2018-01-10 21:40] LABS: ALANINE AMINOTRANSFERASE 14 U/L (12-78); ALBUMIN 3.9 G/DL (3.4-5.0); ALBUMIN/GLOBULIN RATIO 0.8 (1.0-2.7); ALKALINE PHOSPHATASE 85 U/L (46-116); ASPARTATE AMINO TRANSFERASE 17 U/L (15-37); BILIRUBIN,TOTAL 0.3 MG/DL (0.2-1.0)
[2018-01-10] MEDS ORDERED: KEFLEX500 MG ORAL (21:48)
[2018-01-10] MEDS ORDERED: ZOFRAN ODT4 MG ORAL (21:48)
[2018-01-10] MEDS ORDERED: RANITIDINE HCL150 MG ORAL (21:48)
[2018-01-10 22:39] VITALS: BP 124/75
[2018-01-10 22:41] VITALS: BP 108/67
--- NOTE | 2018-01-11 15:58 | Emergency Room Report ---
History of Present Illness General Chief Complaint: Nausea, Vomiting, and Diarrhea Source: Patient Present Illness HPI 27-year-old female presents ED for evaluation. Patient presenting with nausea vomiting and diarrhea 1 day. Febrile in triage. Crampy abdominal pain, 8 out of 10, nonradiating. Denies chest pain shortness of breath. Denies sick contacts. Denies recent antibiotic use. No other aggravating or relieving factors. Denies any other associated symptoms Allergies: Coded Allergies: KETOROLAC (Verified Allergy, Unknown, Rash, 01/10/18) Face swelling TRAMADOL (Unverified Allergy, Unknown, Hives, 01/10/18) Patient History Past Medical History: asthma Past Surgical History: none Pertinent Family History: none Social History: Denies: smoking, alcohol use, drug use Last Menstrual Period: 12/30/17 Now: No Immunizations: UTD Reviewed Nursing Documentation: PMH: Agreed, PSxH: Agreed Nursing Documentation-PMH Hx Cardiac Problems: No Hx Hypertension: No Hx Pacemaker: No Hx Asthma: Yes Hx COPD: No Hx Diabetes: No Hx Cancer: No Hx Gastrointestinal Problems: No Hx Dialysis: No Hx Neurological Problems: No Hx Cerebrovascular Accident: No Hx Seizures: No Review of Systems All Other Systems: negative except mentioned in HPI Physical Exam Vital Signs Date Time Temp Pulse Resp B/P (MAP) Pulse Ox O2 Delivery O2 Flow Rate FiO2 01/10/18 19:49 102.6 95 16 108/67 97 Room Air 102.6 Sp02 EP Interpretation: reviewed, normal General Appearance: no apparent distress, alert, GCS 15, non-toxic Head: normocephalic, atraumatic Eyes: bilateral eye normal inspection, bilateral eye PERRL ENT: hearing grossly normal, normal pharynx, no angioedema, normal voice Neck: full range of motion, supple/symm/no masses Respiratory: chest non-tender, lungs clear, normal breath sounds, speaking full sentences Cardiovascular #1: regular rate, rhythm, no edema Cardiovascular #2: 2+ carotid (R), 2+ carotid (L), 2+ radial (R), 2+ radial (L) , 2+ dorsalis pedis (R), 2+ dorsalis pedis (L) Gastrointestinal: normal bowel sounds, non tender, soft, non-distended, no guarding, no rebound Rectal: deferred Genitourinary: normal inspection, no CVA tenderness Musculoskeletal: back normal, gait/station normal, normal range of motion, non- tender Neurologic: alert, oriented x3, responsive, motor strength/tone normal, sensory intact, speech normal Psychiatric: judgement/insight normal, memory normal, mood/affect normal, no suicidal/homicidal ideation Reflexes: 3+ bicep (R), 3+ bicep (L), 3+ tricep (R), 3+ tricep (L), 3+ knee (R) , 3+ knee (L) Skin: normal color, no rash, warm/dry, well hydrated Lymphatic: no adenopathy Medical Decision Making Diagnostic Impression: Primary Impression: Gastroenteritis Additional Impression: UTI (urinary tract infection) Qualified Codes: N39.0 - Urinary tract infection, site not specified ER Course Hospital Course 27-year-old F presents to ED with cramping abdominal pain with vomiting, diarrhea differential diagnosis: gastritis, SBO, cholecystits, gastroenteritis Clinical course Patient placed on stretcher. On [employer]. After initial history and physical I ordered labs, IV fluids, Zofran and Zantac Labs - no leukocytosis, electrolytes ok, LFTs normal, UA + bacteria Upon reassessment, patient states pain has improved. findings consistent with gastroenteritis. Discussed findings with patient. Recommend close follow-up with PMD I feel this is a highly complex case requiring extensive working including EKG/ Rhythm strip, Xray/CT/US, Blood/urine lab work, repeat exams while in ED, and administration of strong opiates/narcotics for pain control, admission to hospital or close patient follow up. Diagnosis - gastroenteritis, UTI Stable and discharged to home with prescriptions for Zantac, Zofran, Keflex. Followup with PMD. Return to ED if symptoms recur or worsen Labs Test 01/10/18 20:50 White Blood Count 3.6 K/UL (4.8-10.8) Red Blood Count 5.15 M/UL (4.20-5.40) Hemoglobin 12.5 G/DL (12.0-16.0) Hematocrit 40.5 % (37.0-47.0) Mean Corpuscular Volume 79 FL (80-99) Mean Corpuscular Hemoglobin 24.3 PG (27.0-31.0) Mean Corpuscular Hemoglobin Concent 30.9 G/DL (32.0-36.0) Red Cell Distribution Width 16.1 % (11.6-14.8) Platelet Count 266 K/UL (150-450) Mean Platelet Volume 6.7 FL (6.5-10.1) Neutrophils (%) (Auto) 49.7 % (45.0-75.0) Lymphocytes (%) (Auto) 37.9 % (20.0-45.0) Monocytes (%) (Auto) 11.4 % (1.0-10.0) Eosinophils (%) (Auto) 0.3 % (0.0-3.0) Basophils (%) (Auto) 0.7 % (0.0-2.0) Urine Color Yellow Urine Appearance Slightly cloudy Urine pH 5 (4.5-8.0) Urine Specific [place] 1.020 (1.005-1.035) Urine Protein 2+ (NEGATIVE) Urine Glucose (UA) Negative (NEGATIVE) Urine Ketones 1+ (NEGATIVE) Urine Occult Blood Negative (NEGATIVE) Urine Nitrite Negative (NEGATIVE) Urine Bilirubin Negative (NEGATIVE) Urine Urobilinogen Normal MG/DL (0.0-1.0) Urine Leukocyte Esterase 1+ (NEGATIVE) Urine RBC 2-4 /HPF (0 - 2) Urine WBC 5-10 /HPF (0 - 2) Urine Squamous Epithelial Cells Moderate /LPF (NONE/OCC) Urine Amorphous Sediment Few /LPF (NONE) Urine Bacteria Moderate /HPF (NONE) Urine HCG, Qualitative Negative Sodium Level 137 MMOL/L (136-145) Potassium Level 3.2 MMOL/L (3.5-5.1) Chloride Level 101 MMOL/L (98-107) Carbon Dioxide Level 29 MMOL/L (21-32) Anion Gap 7 mmol/L (5-15) Blood Urea Nitrogen 9 mg/dL (7-18) Creatinine 0.9 MG/DL (0.55-1.30) Estimat Glomerular Filtration Rate > 60 mL/min (>60) Glucose Level 78 MG/DL (74-106) Calcium Level 9.8 MG/DL (8.5-10.1) Total Bilirubin 0.3 MG/DL (0.2-1.0) Aspartate Amino Transf (AST/SGOT) 17 U/L (15-37) Alanine Aminotransferase (ALT/SGPT) 14 U/L (12-78) Alkaline Phosphatase 85 U/L (46-116) Total Protein 8.7 G/DL (6.4-8.2) Albumin 3.9 G/DL (3.4-5.0) Globulin 4.8 g/dL Albumin/Globulin Ratio 0.8 (1.0-2.7) Lipase 128 U/L (73-393) Last Vital Signs Date Time Temp Pulse Resp B/P (MAP) Pulse Ox O2 Delivery O2 Flow Rate FiO2 01/10/18 22:41 102.6 16 108/67 97 Room Air 102.6 01/10/18 22:39 77 Disposition: HOME, SELF-CARE Condition: Stable Scripts Ranitidine Hcl* (ZANTAC*) 150 Mg Tablet 150 MG ORAL TWICE A DAY, #30 TAB Prov: ELOINA MITCHELL M.D. 01/10/18 Cephalexin* (KEFLEX*) 500 Mg Capsule 500 MG ORAL Q6H, #28 CAP 0 Refills Prov: ELOINA MITCHELL M.D. 01/10/18 Ondansetron Odt* (ZOFRAN ODT*) 4 Mg Tab.rapdis 4 MG ORAL Q6H Y for Nausea & Vomiting, #30 TAB 0 Refills Prov: ELOINA MITCHELL M.D. 01/10/18 Patient Instructions: Viral Gastroenteritis, Adult, [id number] ELOINA MITCHELL M.D. Jan 11, 2018 15:57
== END 2018-01-10 22:42 | disposition home or self-care (01) ==
LOC: EMR 20:11
DX: K52.9 Noninfective gastroenteritis and colitis, unspecified (principal); N39.0 Urinary tract infection, site not specified; J45.909 Unspecified asthma, uncomplicated; Z88.6 Allergy status to analgesic agent
CPT/HCPCS: 36415; 80053; 81003; 81025; 83690; 85025; 87086; 96374; 96375; 99284; J2405; S0028